=== PATIENT | female | born 1955 | race Caucasian/White ===

== ENCOUNTER 2021-10-14 14:12 | Inpatient (IN) | payer MEDICARE, OTHER ==
[~2021-10-14] VITALS: Ht 160 cm; Wt 71.9 kg
[2021-10-14] MEDS ORDERED: HTP PO (18:17)
[2021-10-14] MEDS ORDERED: Ventolin5 MG/1 ML INH (18:18)
[2021-10-14] MEDS ORDERED: B COMPLEX FORM0.4 MG PO (18:19)
[2021-10-14] MEDS ORDERED: VITAMIN D31000 UNI1 PO (18:21)
[2021-10-14] MEDS ORDERED: OMEP20ER PO (18:22)
[2021-10-14] MEDS ORDERED: FURO40 PO (18:22)
[2021-10-14] MEDS ORDERED: Hair, Skin & N1 EACH PO (18:22)
[2021-10-14] MEDS ORDERED: KLOR-CON 1010 ME4 PO (18:23)
[2021-10-14] MEDS ORDERED: Prednisone10 MG PO (18:24)
[2021-10-14] MEDS ORDERED: REVATIO10 MG/1 ML PO ×2 (18:26→22:31)
[2021-10-14] MEDS ORDERED: TYVASO NEB (18:29)
[2021-10-14] MEDS ORDERED: ZINC50 M3 PO (18:30)
[2021-10-14 19:00] LABS: BASOPHILS ABSOLUTE AUTO 0.03 K/mm3 (0.00-0.23); BASOPHILS PERCENT AUTO 0 % (0-2); EOSINOPHILS ABSOLUTE AUTO 0.09 K/mm3 (0.00-0.68); EOSINOPHILS PERCENT AUTO 1 % (0-6); Hematocrit 43.3 % (33.0-51.0); Hemoglobin 14.6 g/dL (11.5-16.0); IMMATURE GRAN ABSOLUTE AUTO 0.07 K/mm3 (0.00-0.10); IMMATURE GRAN PERCENT AUTO 1 % (0-1); LYMPHOCYTES ABSOLUTE AUTO 1.46 K/mm3 (0.84-5.20); LYMPHOCYTES PERCENT AUTO 11 % (21-46); MONOCYTES ABSOLUTE AUTO 1.07 K/mm3 (0.16-1.47); MONOCYTES PERCENT AUTO 8 % (4-13); Mean Corpuscular HGB 31.3 pg (26.0-34.0); Mean Corpuscular HGB Conc 33.7 g/dL (31.5-36.5); Mean Corpuscular Volume 93 fL (80-100); Mean Platelet Volume 10.8 fL (9.1-12.4); NEUTROPHILS ABSOLUTE AUTO 11.17 K/mm3 (1.96-9.15); NEUTROPHILS PERCENT AUTO 81 % (41-73); Platelet Count 266 K/mm3 (150-400); RDW Coefficient Variation 13.6 % (11.7-14.2); RDW Standard Deviation 45.8 fL (35.1-46.3); Red Blood Cell Count 4.67 M/mm3 (3.80-5.20); White Blood Cell Count 13.89 K/mm3 (4.00-11.30)
[2021-10-14] MEDS ORDERED: Vitamin D1000 UNI1 PO (22:34)
[2021-10-14] MEDS ORDERED: ZINC220 PO (22:36)
[2021-10-14] MEDS ORDERED: OFEV150 MG PO (22:36)
--- NOTE | 2021-10-14 23:12 | NUR ---
CODE STATUS/UPDATE PT PROVIDED THIS RN WITH PICTURE OF POST. POLST TO BE FAXED TO UNIT TOMORROW BY FRIEND. POST STATES PT IS DNI, PHYSICIAN NOTIFIED. CODE STATUS CHAGNED TO DNI. PT REPORTS HEARTBURN, PHYSICIAN NOTIFIED. SEE EMAR FOR ORDERS. HOME MEDICATIONS RECONCILED. WILL CONT TO MONITOR.
[2021-10-15 02:20] LABS: BASOPHILS ABSOLUTE AUTO 0.02 K/mm3 (0.00-0.23); BASOPHILS PERCENT AUTO 0 % (0-2); EOSINOPHILS ABSOLUTE AUTO 0.19 K/mm3 (0.00-0.68); EOSINOPHILS PERCENT AUTO 2 % (0-6); Hematocrit 40.9 % (33.0-51.0); Hemoglobin 13.6 g/dL (11.5-16.0); IMMATURE GRAN ABSOLUTE AUTO 0.06 K/mm3 (0.00-0.10); IMMATURE GRAN PERCENT AUTO 1 % (0-1); LYMPHOCYTES ABSOLUTE AUTO 2.02 K/mm3 (0.84-5.20); LYMPHOCYTES PERCENT AUTO 19 % (21-46); MONOCYTES ABSOLUTE AUTO 0.77 K/mm3 (0.16-1.47); MONOCYTES PERCENT AUTO 7 % (4-13); Mean Corpuscular HGB 31.8 pg (26.0-34.0); Mean Corpuscular HGB Conc 33.3 g/dL (31.5-36.5); Mean Corpuscular Volume 96 fL (80-100); Mean Platelet Volume 10.7 fL (9.1-12.4); NEUTROPHILS ABSOLUTE AUTO 7.54 K/mm3 (1.96-9.15); NEUTROPHILS PERCENT AUTO 71 % (41-73); Platelet Count 264 K/mm3 (150-400); RDW Coefficient Variation 13.6 % (11.7-14.2); RDW Standard Deviation 47.8 fL (35.1-46.3); Red Blood Cell Count 4.28 M/mm3 (3.80-5.20)
[2021-10-15 02:30] LABS: Bilirubin, Total 0.5 mg/dL (0.1-1.0); Calcium, Blood 8.8 mg/dL (8.5-10.1); Creatinine, Blood 0.73 mg/dL (0.40-1.00); Globulin, Blood 2.9 g/dL (2.2-4.0); Potassium, Blood 3.9 mmol/L (3.5-5.5); Total Protein, Blood 5.9 g/dL (6.4-8.2)
--- NOTE | 2021-10-15 06:15 | NUR ---
SHIFT SUMMARY PT ALERT AND ORIENTED X 4. HR STABLE. BP STABLE. NO CP OR PRESSURE. PT REPORTS PAIN IN R SIDE D/T EMBOLI. MEDICATED PER EMAR. PT REPORTS RELIEF. OXYGEN SATURATION MAINTAINED ABOVE 92% ON AIRVO AT 60 L, 96% FIO2, WITH THE NON-REBREATHER AT 15 L ON TOP OF AIRVO. PT REQUESTING TO KEEP NON-REBREATHER ON FOR COMFORT. RT NOTIFIED. PT ABLE TO SLEEP T/O SHIFT. DEPENDS IN PLACE. DUE TO HIGH O2 DEMAND PT DESATS TO LOW 80'S WITH EXERTION WHEN ATTEMPTING TO USE BEDPAN. PT REQUESTING PUREWICK INSTEAD OF AGREEING TO TILLMAN CATH. DISCUSSED WITH DUCK OPERATOR, PUREWICK JUNOY IN PLACE AND TO INT. SUCTION. DEPENDS IN PLACE. PT TURNED Q 2 HRS. CALL LIGHT WITHIN REACH. WILL CONT TO MONITOR UNTIL REPORT GIVEN TO DAYSAMBROSEFT RN.
--- NOTE | 2021-10-15 07:30 | NUR ---
ASSUMED CARE: PT SITTING UPRIGHT IN BED, AIRVO AT 60L AND 93%, NRB AT 15 ON TOP. PT SATTING 93%. CALTRANS EQUIPMENT OPERATOR RN REPORTS THAT PT HAS NO TOLERANCE FOR ACTIVITY. CURRENTLY NSR IN THE 70S. MEDICATED FOR RIB PAIN. HEPARIN GTT RUNNING AND CONFIRMED WITH EMAR AND NIGHT RN. RT AT BEDSIDE AT THIS TIME. NO ACUTE NEEDS OR CONCERNS.
--- NOTE | 2021-10-15 08:32 | NUR ---
ULTRASOUND AT BEDSIDE FOR DOPPLER STUDY
--- NOTE | 2021-10-15 11:56 | NUR ---
ALL TERRAIN VEHICLE RACER AT BEDSIDE. DR RAMIRES CAME TO ROOM AND ASKED STAFF IF IMAGES WERE AVAILABLE FROM OTHER HOSPITAL. CAPPER MACHINE OPERATOR CALLING [facility] TO PUSH IMAGES. DR RAMIRES AWARE. ALSO MADE AWARE THAT PT IS CURRENTLY ON 60L AIRVO AT 93% WITH NRB ON TOP OF THIS WITH 15L AND A DNI
--- NOTE | 2021-10-15 14:14 | NUR ---
PT HAS BEEN REQUIRING FENTANYL 25MCG EVRY 2 HOURS FOR RIGHT RIB PAIN. DISCUSSED WITH PT THE NEED FOR A MORE LONG LASTING OPTION. PT STATES THAT SHE DOES NOT NORMALLY FEEL WELL WITH OPIODS. SUGGESTED TRAMADOL WHICH SHE FELT MAY WORK. CALL TO DR GILBERT WHO STATES HE WILL PUT IN A NEW MED ORDER.
--- NOTE | 2021-10-15 14:28 | NUR ---
RN NOTED ORDERS FOR DNR STATUS IN CHART. DISCUSSED WITH PT WHO STATED SHE WANTS DNI NOT DNR. EXPLAINED TO HER THAT IF SHE WERE TO HAVE A SITUATION WHERE SHE REQUIRED COMPRESSIONS, SHE WOULD BE LIKELY TO ALSO NEED INTUBATION AND EXPLAINED THAT INTUBATION MEANS A MACHINE DOING THE WORK FOR HER. PT CONFIRMED SHE DID NOT WANT INTUBATION BUT WANTED COMPRESSION AND MEDS IF NEEDED. PT STATES UNDERSTANDING THAT THESE INTERVENTIONS ALONE ARE NOT LIKELY TO SAVE HER IF SHE WERE ACTIVELY DYING. PT STATES SHE WOULD STILL WANT TO TRY COMPRESSIONS AND MEDICATIONS IF NEEDED. CALL TO DR MCDONOUGH TO REPORT THIS. TO PLACE NEW ORDERS.
--- NOTE | 2021-10-15 17:48 | NUR ---
SHIFT SUMMARY: PT REMAINS ON AIRVO AT 60L WITH 93% FIO2. NRB AT 15L WELL, PT REMOVES WHEN ADMINISTERING BREATHING TX OR EATING. PT DESATURATES INTO MID 80S WITH MINIMAL ACTIVITY. PUREWICK IN PLACE FOR URINE DRAINAGE. NSR ON TELE. SATTING LOW TO MID 90S ON THE ABOVE SETTINGS.
--- NOTE | 2021-10-15 18:50 | NUR ---
HEARING AID ASSEMBLY SUPERVISOR DISCUSSED WITH COAT ROOM ATTENDANT THE CHANGING OF PUREWICK FOR HYGIENIC PURPOSES AND COAT ROOM ATTENDANT STATED THAT IT NEEDED TO BE REMOVED ALTOGETHER DUE TO FLOOR POLICIES. THIS RN REMOVED IT AND DISCUSSED WITH PT WHO REQUESTED RN TO REVIEW HOSPITAL POLICY SO THAT IT COULD BE REPLACED. PT IS REFUSING TILLMAN CATH AND STATES SHE WANTS A PUREWICK INSTEAD. UNABLE TO FIND SUPPORTING POLICY. DISCUSSED WITH NIGHT RN WHO STATED SHE WOULD REVIEW FURTHER WITH PT AND NIGHT STAFF
--- NOTE | 2021-10-15 23:00 | NUR ---
UPDATE PT DESATS TO 70'S WHEN ATTEMPTING TO USE BEDPAN AND BEDSIDE COMMODE. PT REFUSING TILLMAN CATHETER AT THIS TIME. DISCUSSED WITH PHYSICIAN AND ORDERS FOR PT TO USE PUREWICK FOR PT SAFETY. SEE NURSE NOTIFY NOTES. WILL CONT TO MONITOR.
--- NOTE | 2021-10-16 06:18 | NUR ---
SHIFT SUMMARY PT ALERT AND ORIENTED X 4. HR STABLE. BP STABLE. NO CP OR PRESSURE REPORTED. OXYGEN SATURATION DESATS TO 70'S WITH MINIMAL EXERTION. OXYGEN SATURATION MAINTAINED ABOVE 90% WHILE AT REST ON 60 L AND 96% FIO2 ON AIRVO WITH NON REBREATHER AT 15 L ON TOP OF AIRVO. PT ABLE TO TAKE SMALL BREAKS FROM NON REBREATHER IF NOT EATING, DRINKING OR TALKING. PT ABLE TO ASSIST IN TURNS.CALL LIGHT WITHIN REACH. PT ABLE TO USE SUCTION BY SELF NEEDED. WILL CONT TO MONITOR UNTIL REPORT GIVEN TO DAYSHIFT RN.
--- NOTE | 2021-10-16 18:04 | NUR ---
SHIFT SUMMARY PT A&O X4. VSS. MONITOR SHOWING SR-ST, HR 70s-110s. SPO2 > 90% ON AIRVO @ 60L, 95% FIO2 REQUIRING 15L NRB MAJORITY OF SHIFT WELL. PT W/ DESAT TO 70s W/ MINIMAL ACTIVITY IN BED & DOING HER HOME BREATHING TX MEDICATION. PUREWICK IN PLACE PER MD COTTON ORDER/OKAY FOR PT USE D/T HIGH OXYGEN DEMAND & DESAT W/ MINIMAL ACTIVITY. PT REPORTING PAIN IN "NECK, LOWER BACK & L RIBS", MEDICATED PER PT REQUEST W/ PT REPORT OF SOME IMPROVEMENT, SEE EMAR. CXR DONE IN AT THIS TIME.
--- NOTE | 2021-10-17 05:36 | NUR ---
SHIFT SUMMARY PT ALERT AND ORIENTED X 4. HR STABLE. BP STABLE, MAP ABOVE 65. OXYGEN SATURAITON MAINTAINED ABOVE 90% ON 60 L AND 95% FIO2 WITH 15 L NON-REBREATHER ON TOP. PT HAD EPISODE OF COUGHING AT BEGINNING OF SHIFT. STATES SHE FELT IT WAS D/T HER "ACID REFLUX." OXYGEN SATURATION DECREASES DOWN TO HIGH 78 WHEN COUGHING. PT ABLE TO RECOVER UP TO 90%. PT OFFERED GI COCTAIL, PT DECLINES. PT ABLE TO ASSIST IN TURNS IN BED. PUREWICK CHANGED DURING SHIFT. PUREWICK IN PLACE AND TO SUCTION. PT'S SKIN ASSESSED FREQUENTY AND CLEANED T/O SHIFT. PT DESATS WITH MINIMAL EXERTION INTO 80'S. NO CP OR PRESSURE REPORTED. PT REPORTS PAIN IN R RIBS, MEDICATED PER EMAR. PT REPORTS RELIEF. CALL LIGHT AND SUCTION WITHIN REACH. WILL CONT TO MONITOR UNTIL REPORT GIVEN TO DAYSHIFT RN.
--- NOTE | 2021-10-17 10:03 | NUR ---
DESAT PT ON AIRVO @ 60L, 95% FIO2 & NRB @ 15L. PT SPO2 85-90%, SITTING UPRIGHT & DEEP BREATHING. PT ALERTING STAFF IT IS COMMON FOR PT's OXYGEN LEVEL TO DROP "BY 10 POINTS" WHEN DOING HOME TYVASO TX. PT SPO2 88% PRIOR TO REMOVING NRB FOR TYVASO TREATMENT WHILE SITTING UPRIGHT IN BED. SPO2 DECREASED TO 66% WHILE DOING TIMED TYVASO TX, SELF ADMINISTERED BY PT. NRB THEN REAPPLIED WHEN TX COMPLETE & PT DEEP BREATHING. SPO2 THEN RETURN TO 88-92% RANGE.
[2021-10-17 13:29] LABS: Bun/Creatinine Ratio 30.2 (12.0-20.0); Calcium, Blood 9.5 mg/dL (8.5-10.1); Creatinine, Blood 0.53 mg/dL (0.40-1.00); Potassium, Blood 4.4 mmol/L (3.5-5.5)
--- NOTE | 2021-10-17 18:23 | NUR ---
SHIFT SUMMARY PT A&O X4. VSS. MONITOR SHOWING SR-ST, HR 70s-110. PT ON AIRVO @ 60L, 95% FIO2 & 15L NRB W/ SPO2 AVERAGING 85-90% T/O THE DAY. PT BEDBOUND D/T HIGH OXYGEN DEMAND AT THIS TIME, DESATTING W/ MINIMAL ACTIVITY. W/ YAIRAY FOR PUREWICK TO BE IN PLACE FOR PREVENTION OF FURTHER DESATURION. MD RIVERS TO BEDSIDE TODAY W/ INSTRUCTION TO TRIAL PT HOME O2 DOSE OF 20L NC. RT TO BEDSIDE FOR TRIAL. PT SPO2 DECREASE TO ABOUT 75% DURING APPROXIMATELY 3 MIN TRIAL ATTEMPT. PT THEN PLACED BACK ON 60L, 95% FIO2 & 15L NRB.
--- NOTE | 2021-10-17 21:38 | NUR ---
CARE ASSUMPTION PT LYING IN BED W O2 SATS <90% ON AIRVO 60L 95% FIO2 W ADDITIONAL 15L NRB OVER IT. PT IN NO DISTRESS DESPITE LOW O2 SATS. DR. CONROY CAME TO BEDSIDE TO SEE AND SPEAK W THE PATIENT ABOUT DNI STATUS. BP AND HR STABLE. R/T AT BEDSIDE TO EVALUATE PT AND GIVE NEBULIZER TX. PT DENYING ANY OTHER NEEDS AT THIS TIME.
[2021-10-18 04:57] LABS: Bun/Creatinine Ratio 33.8 (12.0-20.0); Calcium, Blood 9.4 mg/dL (8.5-10.1); Creatinine, Blood 0.5 mg/dL (0.40-1.00); Potassium, Blood 4.3 mmol/L (3.5-5.5)
--- NOTE | 2021-10-18 05:32 | NUR ---
SENIOR SERVICE AIDE SUMMARY PT IS AXO AND COMMUNICATING APPROPRIATELY. PT HAS MAINTAINED O2 SATS 82-88% THIS SHIFT ON 60L 95% FIO2 W ADDITIONAL 15L NRB OVER IT. PT HAD TWO COUGHING EPISODES THAT RESULTED IN SCANT AMOUNT OF BLOOD THE FIRST APPEARING TO BE A VERY SMALL CLOT THAT SHE WAS ABLE TO SPIT INTO A CUP. TELE SHOWING SR IN THE 70-80'S W ST DEPRESSION AND PAC'S. BP WNL AND STABLE THIS SHIFT. PT AFEBRILE. PT REPORTING BACK PAIN THAT SHE SAYS IS CHRONIC BUT REQUIRED PAIN MEDICATION THROUGHOUT THE NIGHT. PT SHOWING NO OBVIOUS DISTRESS DESPITE LOW O2 SATS. PROVIDER SAW PT AT BEDSIDE AT START OF THE SHIFT, SEE PREVIOUS NOTES FOR DETAILS. PUREWICK IN PLACE PER PROVIDER ORDER DRAINING DARK YELLOW URINE. PT ABLE TO TAKE PILLS AND DRINK FLUIDS THIS SHIFT W NO ASPIRATION. WILL REPORT TO ONCOMING RN.
--- NOTE | 2021-10-18 11:40 | NUR ---
Pt resting in bed upon arrival. Dr Garcia in reviewing plan of care with Pt. Plan is to continue current plan of care. Dr Garcia reports for this RN to discuss with Pt regarding goals if Pt does not improve. Offered therapeutic listening as Pt reports living in [facility] and has been having a Palliative Care RN visit her home. She reports hopefullness that she can improve and return home but also reports knowing if she does not improve then she plans for comfort care. Discussed worse case scenario and if ever becomes in a situation in which she can not make decision then she wants to be placed on comfort care. She also would like staff to contact her healthcare proxy Natasha Mackey. Continued therapeutic listening and answered questions. Pt expresses appreciation and reports no other concerns at this time. Pt agreeable for continued PC visits. Spoke with Primary RN Lu and discussed case. Pt's healthcare Proxy Natasha Sandra [phone] Palliative Care will remain available.
--- NOTE | 2021-10-18 19:10 | NUR ---
SHIFT SUMMARY PT A&O X4. OXYGEN REQUIREMENTS REMAIN @ 60L, 95% FIO2 + 15L NRB. PT SPO2 SUSTAINING 70's-80's THIS SHIFT. PT CHANGED FROM DNI CODE STATUS TO COMPLETE DNR STATUS TODAY PER PT PREFERENCE. MD RIVERS & PALLIATIVE CARE RN @ BEDSIDE THIS SHIFT DISCUSSING PLAN OF CARE W/ PT. CONTINUING CURRENT HEALTHCARE AT THIS TIME. PUREWICK IN PLACE, CHANGED THIS SHIFT. PT CONTINUES TO REPORT PAIN TO NECK, BACK & RIBS, MEDICATED PER PT REQUEST/EMAR W/ SOME IMPROVEMENT.
--- NOTE | 2021-10-18 19:49 | NUR ---
CARE ASSUMTPION PT IS SITTING BED W O2 SATS 80-85% ON AIRVO 60L W 95% FIO2 W ADDITIONAL 15L NRB ON TOP OF IT. PT APPEARING MORE TIRED THEN SHE WAS THE PREVIOUS MEDICATION AID BUT SHE IS STILL ALERT AND COMMUNICATING APPROPRIATELY. RT AT BEDSIDE TO GIVE BREATHING TX. BP WNL AND STABLE. TELE SHOWING SR-ST 90-100'S W ST DEPRESSION. PT REPORTING PAIN IN LOWER BACK AND MEDICATED PER EMAR. PT DENYING ANY FURTHER NEEDS AT THIS TIME.
[2021-10-19 04:49] LABS: BASOPHILS ABSOLUTE AUTO 0.02 K/mm3 (0.00-0.23); BASOPHILS PERCENT AUTO 0 % (0-2); EOSINOPHILS ABSOLUTE AUTO 0.11 K/mm3 (0.00-0.68); EOSINOPHILS PERCENT AUTO 1 % (0-6); Hematocrit 44.8 % (33.0-51.0); Hemoglobin 15.5 g/dL (11.5-16.0); IMMATURE GRAN ABSOLUTE AUTO 0.06 K/mm3 (0.00-0.10); IMMATURE GRAN PERCENT AUTO 0 % (0-1); LYMPHOCYTES ABSOLUTE AUTO 1.85 K/mm3 (0.84-5.20); LYMPHOCYTES PERCENT AUTO 13 % (21-46); MONOCYTES ABSOLUTE AUTO 1.01 K/mm3 (0.16-1.47); MONOCYTES PERCENT AUTO 7 % (4-13); Mean Corpuscular HGB 31.8 pg (26.0-34.0); Mean Corpuscular HGB Conc 34.6 g/dL (31.5-36.5); Mean Corpuscular Volume 92 fL (80-100); NEUTROPHILS ABSOLUTE AUTO 11.11 K/mm3 (1.96-9.15); NEUTROPHILS PERCENT AUTO 79 % (41-73); Platelet Count 323 K/mm3 (150-400); RDW Coefficient Variation 13.7 % (11.7-14.2); RDW Standard Deviation 45.4 fL (35.1-46.3); Red Blood Cell Count 4.88 M/mm3 (3.80-5.20); White Blood Cell Count 14.16 K/mm3 (4.00-11.30)
[2021-10-19 05:09] LABS: Bun/Creatinine Ratio 34.8 (12.0-20.0); Calcium, Blood 9.6 mg/dL (8.5-10.1); Creatinine, Blood 0.58 mg/dL (0.40-1.00); Potassium, Blood 4.4 mmol/L (3.5-5.5)
--- NOTE | 2021-10-19 05:49 | NUR ---
ION IMPLANT MACHINE OPERATOR SUMMARY PT IS ALERT AND COMMUNICATING APPROPRIATELY. PT HAD MAINTAINED O2 SATS 78-87 THIS SHIFT ON AIRVO 60L W 95% FIO2 W ADDITIONAL 15L NRB ON TOP OF IT. PT HAD DESATURATION DOWN INTO THE MID 60'S THIS AM AND TOOK APPROX 30 MIN TO RECOVER TO THE MID 70'S, DURING THIS TIME THE PROVIDER WAS CONTACTED AND THE PROVIDER CAME TO THE BEDSIDE TO EVALUATE THE PT. PROVIDER GAVE NEW ORDERS FOR PAIN MEDICATION THE PT REPORTED INCREASED PAIN IN BACK WHICH MADE IT HARDER TO BREATH. PT GIVEN MEDICATION AND REPORTED RELIEF WHICH ALLOWED TO TO RELAX, O2 SATS NOW 77%. PT STILL LUCID BUT APPEARS MUCH MORE TIRED AND ANXIOUS AT TIMES COMPARED TO PREVIOUS ION IMPLANT MACHINE OPERATOR. BP WNL AND STABLE. TELE SHOWING ST 100-120 THIS SHIFT. PUREWICK IN PLACE PER ORDER AND CHANGED THIS SHIFT. PT HAVING MUCH MORE HEMOPTYSIS THIS SHIFT. WILL REPORT TO ONCOMING RN.
--- NOTE | 2021-10-19 08:47 | NUR ---
CARE ASSUMPTION / PT LEANING TOWARDS COMFORT CARE PT A&O X4. UPON ENTRY TO PT RM THIS MORNING, PT STATING "I'M NOT DOING GREAT." PT SPO2 78% ON AIRVO @ 60L, 95% FIO2 + 15L NRB. RR FAST & LABORED. PT STATING "I THINK AFTER I SIGN THE LEGAL DOCUMENTS THIS MORNING I'M GOING TO BE READY TO END THIS LIFE THING. I HAVE A FRIEND COMING ON SATURDAY, BUT I DON'T THINK I'M GOING TO MAKE IT." PT THEN REQUESTING THIS RN MAKE PHONE CALLS TO [facility] FOR HER, INFORMING "THIS AFTERNOON OR MAY NOT SEE AGAIN & THAT'S OKAY." PT STATES "WHEN IT'S TIME I WANT TO BE OVER DRUGGED." PT TEXTING FRIENDS STATING "I'M PULLING THE PLUG." UPDATED & TO THE BEDSIDE. PALLIATIVE CARE RN INFORMED WELL.
--- NOTE | 2021-10-19 09:42 | NUR ---
Spoke with Dr Saunders prior to Pt visit and discussed case. Pt plans to move forward with comfort care at 1400 after her friends have arrived. Received V/O to place comfort care orders at [address] Saunders. Pt resting in bed wearing AIRVO and non rebreather. Pt appears to be experiencing discomfort and confirms dyspnea and pain. She states plan to move forward with comfort care once friends have arrived. She requests to be premedicated with medication for comfort before titrating O2 down. Pt reports experiencing hallucination in 1996 when she received morphine. Discussed with Dr Saunders regarding medication. Received V/O to trial Pt on 5mg Roxanol Q 2 hours PRN for pain and airhunger. Pt is agreeable. Palliative Care will F/U with Pt throughout the day.
--- NOTE | 2021-10-19 12:22 | NUR ---
UPDATE / T.O.D. PT INFORMING THIS RN THAT SHE WANTS HER BODY TO GO TO [facility] IN [place]. PT STATING THAT FRIEND DANA WILL BE BRINGING PAPERWORK. PT THEN AGAIN COMMUNICATING READINESS TO INITIATE COMFORT CARE & MEDICATIONS SOON SHE SIGNS THE LEGAL DOCUMENTS HER FRIENDS WOULD BE BRINGING. PT REQUESTING PRN PO ROXANOL, ONE DOSE GIVEN PER EMAR @ APPROX 0930. PT THEN C/O 9/10 PAIN, REQUESTING PRN IV FENTANYL BE GIVEN. IV FENTANYL GIVEN PER EMAR. PT THEN RESTING, ABLE TO GO TO SLEEP SOON AFTER MEDICATION. AT APPROX 1030, THIS RN NOTIFIED BY MT THAT PT HR DECREASE FROM 120's DOWN TO 40's. THIS RN IMMEDIATELY TO PT RM WHERE ANOTHER RN WAS ALREADY AT PT BEDSIDE. PT RR SLOW & IRREGULAR. PT EYES PARTIALLY OPEN. CONTINUOUS BIOX THEN UNABLE TO READ PULSE & SPO2 READING. THIS RN & ANOTHER RN W/ PT, PROVIDING THERAPEAUTIC PRESENCE. SEE TELEMETRY STRIPS FOR PROGRESSION OF TELEMETRY READINGS. PULSE NOT PALPABLE @ APPROX 1040. NO FRIENDS/FAMILY @ BEDSIDE. FRIENDS BULMARO & DANA THEN TO PT BEDSIDE @ APPROX 1200.
--- NOTE | 2021-10-19 12:59 | NUR ---
Patient's friends arrive from [place]. They are tearful over the of their much loved friend. I conducted a life review, celebrate with them the beauty of her life and peaceful and provide spiritual insights and encouragement and greif support. Friends Felipa and Holly respond well and show signs of being comforted. I will continue to remain available.
--- NOTE | 2021-10-19 18:42 | NUR ---
DONOR DONOR LINE REPORTING PT CANDIDATE FOR EYE DONATION. STEWARD/STEWARDESS NIGHT TO PT RM FOR CORNEA REMOVAL, NOW COMPLETE. "ANATOMICAL GIFT DONATION" FORM PROVIDED BY SINGLE STROKE PREFORMER UPON COMPLETTION, & FORM PLACED IN PT CHART. PT BODY TO BE PICKED UP & TAKEN TO HOME @ APPROX 1930.
== END 2021-10-19 19:59 | DRG 196 ==
LOC: PCU 14:12
PROVIDERS: Family Medicine; Internal Medicine Critical Care Medicine; ADMIT Hospitalist
PROC: 5A0945A Assistance with Respiratory Ventilation, 24-96 Consecutive Hours, High Flow/Velocity Cannula (ICD-10-PCS; principal; 2021-10-14)
DX: J84.10 Pulmonary fibrosis, unspecified (principal); I26.09 Other pulmonary embolism with acute cor pulmonale; J96.21 Acute and chronic respiratory failure with hypoxia; J96.22 Acute and chronic respiratory failure with hypercapnia; Z51.5 Encounter for palliative care; Z66 Do not resuscitate; I27.20 Pulmonary hypertension, unspecified; I10 Essential (primary) hypertension; E78.5 Hyperlipidemia, unspecified; Z87.891 Personal history of nicotine dependence
CPT/HCPCS: 36415; 71045; 80048; 80053; 82947; 85025; 85520; 93306; 93970; 94640; 94664; 94762; A9270; C1751; C9113; J1644; J1650; J1940; J2405; J3010; J3480; J7040; J7512